=== PATIENT | female | born 1995 | race Caucasian/White ===

== ENCOUNTER 2021-10-28 20:03 | Emergency (ER) | payer OTHER ==
[~2021-10-28] VITALS: Ht 170.2 cm; Wt 82.6 kg
[2021-10-28 20:16] VITALS: BP_SYST 146
[2021-10-28] MEDS ORDERED: IBUP-1969 PO (21:04)
[2021-10-28] MEDS ORDERED: HYDR-3917 PO (21:05)
[2021-10-28 21:27] VITALS: BP_SYST 123
== END 2021-10-28 21:29 | disposition home or self-care (01) ==
LOC: SED 20:03
DX: S93.402A Sprain of unspecified ligament of left ankle, initial encounter (principal); W20.8XXA Other cause of strike by thrown, projected or falling object, initial encounter; Z88.3 Allergy status to other anti-infective agents; Z88.1 Allergy status to other antibiotic agents; Y93.44 Activity, trampolining; Y93.89 Activity, other specified; Y92.89 Other specified places as the place of occurrence of the external cause; Y99.8 Other external cause status
CPT/HCPCS: 99283